=== PATIENT | female | born 1960 | race African-American/Black ===

== ENCOUNTER 2016-09-27 11:09 | Observation (INO) ==
[2016-09-27] MEDS ORDERED: methylPREDNISolone SOD SUC 125 MG/2 ML VIAL IV STA (11:48)
[2016-09-27] MEDS ORDERED: ALBUTEROL NEB SOLN 5 MG/ML 20 ML/BOTTLE CONT NEB STA (11:48)
[2016-09-27] MEDS ORDERED: methylPREDNISolone SOD SUC 125 MG/2 ML VIAL ONE (11:53)
--- NOTE | 2016-09-27 12:03 | Emergency Department Note ---
Gavino Jolley Meredith, am scribing for, and in the presence of, David Núñez MD 11: 51. Niya Jolley James D, MD, personally performed the services described in this documentation, ascribed by Barbara Mancia in my presence, and it is both accurate and complete . Arrival - Arrival Chief Complaint: Shortness of Breath Stated Complaint: breathing and flu ED Nursing Triage Note: Pt c/o SOB, wheezing, coughing, nasal congestion, ?fever , and chills. Mode of Arrival: Ambulatory Limitations: No Limitations Source: Patient, Old Records Reviewed, RN Notes Reviewed Time Seen by Provider: 09/27/16 11:45 - History of Present Illness HPI Narrative: Pt is a 56 y/o black female reporting to the ED with c/o shortness of breath, wheezing, coughing, nasal congestion, fever, and chills for the past 2 days. She states she her son was killed a few days ago and she has been very depressed. No one is with her today. Pt has a history of HTN, NIDDM, asthma, and sciatica. Onset (ago): day(s) Allergies/Adverse Reactions: Allergies Allergy/AdvReac Type Severity Reaction Status Date / Time No Known Allergies Allergy Verified 01/17/16 12:09 Home Medications: Home Medications Medication Instructions Recorded Confirmed Type Verapamil Tab [Calan Tab] 80 mg PO TID 12/02/14 09/05/16 History Metoprolol Tartrate Tab [Lopressor 50 mg PO BID #60 tablet NS 08/13/15 09/05/16 Rx Tab] metFORMIN [Glucophage] 500 mg PO BID 01/17/16 09/05/16 History Esomeprazole Magnesium [Nexium] 40 mg PO DAILY #30 capsule 09/05/16 Rx hydroCHLOROthiazide 12.5 mg PO DAILY 09/05/16 09/05/16 History [Hydrochlorothiazide] Review of System - Review of System 12 point system: reviewed and no additional remarkable complaints except as stated - Review of System Constitutional: Present: as per HPI, chills, fever Head/Ears/Nose/Throat: Present: see HPI, other (nasal congestion) Respiratory: Present: as per HPI, cough, respiratory distress (SOB), wheezing Psychiatric: Present: as per HPI, depression Medical,Surgical,& Family Hx - Medical History Cardio: History of: Hypertension Endocrine: History of: Diabetes Mellitus (NIDDM) Respiratory: History of: Asthma Musculoskeletal: History of: Musculoskeletal Problems (SCIATICA, RLE muscle spasms) - Surgical History Orthopedic Surgeries: Surgical HX of;: Orthopedic Surgery (RLE trauma) - Family History Family History: Reports;: Family Cancer, Family Diabetes, Family Hypertension - Social History Smoking Status: Never smoker Exam Physical Examination: GENERAL: This is a well-nourished, well-developed black female. Pt is tearful. VITAL SIGNS: Temperature: 96.5, Pulse: 99, Respirations: 24, Blood pressure: 139 /110, O2 Saturation: 97 HEENT: Head is normocephalic and atraumatic. Pupils are equally round and reactive to light. Extraocular movement are intact. Oropharynx is benign with moist mucous membranes. NECK: Neck is soft and supple without tenderness. There are no masses. There is no lymphadenopathy. LUNGS: Expiratory wheezes with prolongation of the expiratory phase. Chest rises symmetrically. There is no chest wall tenderness. CV: Heart is regular rate and rhythm without murmurs, rubs, or gallops. ABDOMEN: Abdomen is soft, non-tender to palpation. There are no abnormal masses palpated. There is no organomegaly. Bowel sounds are present and active. SKIN: Skin is warm and dry. No rash. EXTREMITIES: Patient has full range of motion without tenderness. There is no pedal edema. NEUROLOGIC: Awake, alert, and oriented x4. Cranial nerves II through XII are grossly intact. There are no motorsensory deficits. PSYCHIATRIC: Pt is depressed and very tearful. Vital Signs: Vital Signs Temperature 96.5 F L 09/27/16 11:13 Pulse Rate 108 H 09/27/16 13:17 Respiratory Rate 20 09/27/16 13:17 Blood Pressure 155/72 09/27/16 13:00 O2 Sat by Pulse Oximetry 100 09/27/16 13:17 Course - Reevaluation(s) Reevaluation #1: Patient continues to have expiratory wheezes. Time: 13:20 - Consultations Consultation #1: Discussed with hospitalist. Patient will be admitted to their service. Time: 13:20 Results - Labs Lab Results: I have reviewed the patients labs Labs: Influenza A: neg Influenza B: neg Disposition Clinical Impression: Acute asthma exacerbation, Grief reaction Case discussed with: patient Disposition: Still a Patient Condition: Stable Time of Disposition: 13:20
[2016-09-27] MEDS ORDERED: guaiFENesin/DM ER 600-30 MG TABLET PO PRN (13:27)
[2016-09-27] MEDS ORDERED: MORPHINE 2 MG/1 ML SYRINGE IV PRN (13:27)
[2016-09-27] MEDS ORDERED: ONDANSETRON 4 MG/2 ML VIAL IV PRN (13:27)
[2016-09-27] MEDS ORDERED: GLUCAGON 1 MG VIAL IM PRN (13:27)
[2016-09-27] MEDS ORDERED: ACETAMINOPHEN 325 MG TABLET PO PRN (13:27)
[2016-09-27] MEDS ORDERED: DOCUSATE SODIUM 100 MG CAPSULE PO PRN (13:27)
[2016-09-27] MEDS ORDERED: DEXTROSE 50% 25 GM/50 ML VIAL IV PRN (13:27)
[2016-09-27] MEDS ORDERED: ALBUTEROL/IPRATROPIUM 3 ML NEB RESP TX PRN (13:27)
--- NOTE | 2016-09-27 13:44 | XRay Report ---
XR chest 2V Date: 09/27/2016 11:48 AM History: Cough Comparison: 08/13/2015 Technique: PA and lateral chest Findings: The heart is normal in size. The lungs are clear with unremarkable mediastinum. Degenerative changes are noted. Impression: No acute cardiopulmonary pathology identified. PROCEDURE INTERPRETED AT [facility] DEPARTMENT OF RADIOLOGY Final Report Signed by: Dr. Sandra Levine
[2016-09-27 13:52] LABS: Alanine Aminotransferase 30 U/L (13-56); Albumin 3.7 G/DL (3.4-5.0); Alkaline Phosphatase 92 U/L (45-117); Aspartate Amino Transferase 22 U/L (0-37); Bilirubin,Total < 0.39 MG/DL (0.2-1.0); Blood Urea Nitrogen 10 MG/DL (7-18); Glucose 98 MG/DL (74-106); Osmolality,Calculated 281.1 MOS/KG (273-304); Potassium 4.3 MMOL/L (3.5-5.1); Sodium 142 MMOL/L (136-145)
--- NOTE | 2016-09-27 14:13 | Hospitalist History & Physical ---
Assessment and Plan - Time spent with patient Time spent with patient: Greater than 30 minutes (due to assessment, plan and documentation.) (1) Acute asthma exacerbation Status: Acute Assessment and plan: levaquin, solumedrol, duonebs, o2 Current Visit: Yes (2) Grief reaction Status: Acute Current Visit: Yes History of Present Illness Chief complaint: asthma History of present illness: Ms. Valadez is a 56 year old female who presents to the ED today with complaints of shortness of breath. She has been under tremendous stress the last week. One of her sons was murdered in [place] last Friday and she found out on Friday. She, understandably, has been very depressed. She states that about 2 days ago, she began to have increased shortness of breath and has required nebulizer treatments as needed at home. She denies a productive cough at this time. She has received an hour long nebulizer treatment in the ED and steroids and continues to wheeze. She does have a hx of HTN and DM. She will be admitted and treated with IV Levaquin, Steroids and Duonebs for asthma exacerbation. CXR at this time does not show a pneumonia. We will continue to monitor, and reassess labs and cxr in the AM. She lives at home and typically functions independently. Denies any etoh, tobacco or drug use/abuse. Further plan and addendum to follow by Dr. Andujar. Home Medications Medication Instructions Recorded Confirmed Type Verapamil Tab [Calan Tab] 80 mg PO TID 12/02/14 09/27/16 History Metoprolol Tartrate Tab [Lopressor 50 mg PO BID #60 tablet NS 08/13/15 09/27/16 Rx Tab] metFORMIN [Glucophage] 500 mg PO BID 01/17/16 09/27/16 History Esomeprazole Magnesium [Nexium] 40 mg PO DAILY #30 capsule 09/05/16 09/27/16 Rx hydroCHLOROthiazide 12.5 mg PO DAILY 09/05/16 09/27/16 History [Hydrochlorothiazide] Albuterol Inhaler [Proventil 2 puff INH Q4H PRN 09/27/16 09/27/16 History Inhaler] Allergies Allergy/AdvReac Type Severity Reaction Status Date / Time No Known Allergies Allergy Verified 01/17/16 12:09 Medical,Surgical,& Family Hx - Medical History Cardio: History of: Hypertension Endocrine: History of: Diabetes Mellitus (NIDDM) Respiratory: History of: Asthma Musculoskeletal: History of: Musculoskeletal Problems (SCIATICA, RLE muscle spasms) - Surgical History Orthopedic Surgeries: Surgical HX of;: Orthopedic Surgery (RLE trauma) - Family History Family History: Reports;: Family Cancer, Family Diabetes, Family Hypertension - Social History Smoking Status: Never smoker Frequency of Alcohol Use: None Type of Drug Use: None Marital Status: Unknown Lives With:: Alone Functional capacity: independent ambulation - Constitutional Constitutional: Absent: chills, fatigue, fever(s) - EENT Eyes: Absent: blurry vision, diplopia Ears: Absent: decreased hearing, tinnitus Nose, mouth and throat: Present: headache(s). Absent: dysphagia - Cardiovascular Cardiovascular: Present: dyspnea, dyspnea on exertion. Absent: chest pain at rest, palpitations - Respiratory Respiratory: Present: cough, dyspnea, dyspnea on exertion, wheezing. Absent: hemoptysis, change in phlegm color - Gastrointestinal Gastrointestinal: Absent: abdominal pain, melena, nausea, vomiting - Genitourinary Genitourinary: Absent: dysuria, hematuria - Musculoskeletal Musculoskeletal: Absent: arthralgias, joint swelling - Neurological Neurological: Absent: confusion, dizziness - Psychiatric Psychiatric: Present: depression. Absent: anxiety, confusion - Endocrine Endocrine: Absent: cold intolerance, heat intolerance - Hematologic/Lymphatic Hematologic/Lymphatic: Absent: easy bleeding, easy bruising Exam - Constitutional Vitals: Period Temp Pulse Resp BP Sys/Mendieta Pulse Ox Last 24 Hr 114 20-108 132-152/83-88 98-100 General appearance: normal weight, no acute distress - Head Head exam: Present: normal inspection, normocephalic - Eye Eye exam: Present: EOMI. Absent: scleral icterus Pupils: Present: GLENN, normal accommodation - ENT ENT exam: Present: normal exam, normal oropharynx - Neck Neck exam: Present: normal inspection. Absent: lymphadenopathy - Respiratory Respiratory exam: Present: accessory muscle use, prolonged expiratory phase, wheezes - Cardiovascular Cardiovascular exam: Present: regular rate and rhythm. Absent: carotid bruit - GI/Abdominal GI/Abdominal exam: Present: normal bowel sounds, soft. Absent: tenderness - Extremities Exam Extremities exam: Present: normal inspection. Absent: edema - Back Exam Back exam: Present: normal inspection. Absent: muscle spasm - Neurological Exam Neurological exam: Present: alert, oriented X3 - Psychiatric Psychiatric exam: Present: anxious, depressed - Skin Skin exam: Present: normal color, warm, dry, intact Results - Labs CBC & BMP: 09/27/16 11:55
[2016-09-27 14:41] LABS: Basophils % 0.8 % (0.0-0.8); Eosinophils # 0.5 10*3/uL (0.0-0.87); Eosinophils % 9.1 % (0.00-10.9); Hematocrit 42.7 VOL% (35.7-47.0); Hemoglobin 13.6 GM/DL (12.0-16.0); Immature Granulocytes % 0.2 %; Immature Granulocytes Absolute 0.01 #; Lymphocytes # 2.3 10*3/uL (1.4-4.0); Lymphocytes % 43.9 % (21.3-54.2); Mean Corpuscular HGB Conc 31.9 GM/DL (32-36); Mean Corpuscular Hemoglobin 31 PG (27-34); Mean Corpuscular Volume 96.2 FL (87-102); Mean Platelet Volume 11.9 FL (9.6-12.0); Monocytes # 0.3 10*3/uL (0.11-0.8); Monocytes % 5.2 % (1.7-12.7); Neutrophils # 2.1 10*3/uL (1.4-7.4); Neutrophils % 40.8 % (38.7-73.9); Platelet Count 252 T/CUMM (130-400); Red Blood Count 4.44 MC/CUMM (3.8-5.5); Red Cell Distribution Width 11.5 % (9.3-17.3); White Blood Count 5.2 T/CUMM (4-12)
[2016-09-27] MEDS ORDERED: LORazepam 2 MG/1 ML VIAL IV PRN (14:43)
[2016-09-27] MEDS ORDERED: ALBUTEROL 2.5 MG/3 ML NEB RESP TX PRN (15:04)
[2016-09-27] MEDS: LEVOFLOXACIN INJ 750 MG in PREMIX 1 EACH IV SCH (15:26)
[2016-09-27] MEDS: methylPREDNISolone SOD SUC 125 MG/2 ML VIAL IV SCH ×2 (17:09→20:35)
[2016-09-27] MEDS: VERAPAMIL 80 MG TABLET PO SCH ×2 (17:13→20:33)
[2016-09-27] MEDS: ENOXAPARIN 40 MG/0.4 ML SYRINGE SUBCUT SCH (17:13)
[2016-09-27] MEDS: INSULIN LISPRO 100 UNIT/ML SUBCUT SCH ×2 (17:25→20:35)
[2016-09-27] MEDS: metFORMIN 500 MG TABLET PO SCH (20:27)
[2016-09-27] MEDS: METOPROLOL TARTRATE 50 MG TABLET PO SCH (20:27)
[2016-09-28 05:35] LABS: Basophils % 0.1 % (0.0-0.8); Hematocrit 39.9 VOL% (35.7-47.0); Hemoglobin 12.8 GM/DL (12.0-16.0); Immature Granulocytes % 0.4 %; Immature Granulocytes Absolute 0.04 #; Lymphocytes # 1.1 10*3/uL (1.4-4.0); Lymphocytes % 10.1 % (21.3-54.2); Mean Corpuscular HGB Conc 32.1 GM/DL (32-36); Mean Corpuscular Hemoglobin 30 PG (27-34); Mean Corpuscular Volume 94.1 FL (87-102); Mean Platelet Volume 11.2 FL (9.6-12.0); Monocytes # 0.2 10*3/uL (0.11-0.8); Monocytes % 1.4 % (1.7-12.7); Neutrophils # 9.5 10*3/uL (1.4-7.4); Platelet Count 258 T/CUMM (130-400); Red Blood Count 4.24 MC/CUMM (3.8-5.5); Red Cell Distribution Width 11.8 % (9.3-17.3); White Blood Count 10.8 T/CUMM (4-12)
[2016-09-28] MEDS: methylPREDNISolone SOD SUC 125 MG/2 ML VIAL IV SCH ×3 (06:05→21:43)
[2016-09-28 06:07] LABS: Albumin 3.3 G/DL (3.4-5.0); Bilirubin,Total 0.6 MG/DL (0.2-1.0); Calcium 9.2 MG/DL (8.5-10.1); Osmolality,Calculated 282.4 MOS/KG (273-304); Potassium 4.8 MMOL/L (3.5-5.1); Total Protein 7.5 G/DL (6.4-8.3)
[2016-09-28] MEDS: INSULIN LISPRO 100 UNIT/ML SUBCUT SCH ×4 (08:48→21:43)
[2016-09-28] MEDS: metFORMIN 500 MG TABLET PO SCH ×2 (08:49→21:42)
[2016-09-28] MEDS: hydroCHLOROthiazide 12.5 MG CAPSULE PO SCH (08:49)
[2016-09-28] MEDS: PANTOPRAZOLE 40 MG TABLET PO SCH (08:49)
[2016-09-28] MEDS: ALPRAZolam 0.25 MG TABLET PO PRN ×2 (08:49→21:42)
[2016-09-28] MEDS: METOPROLOL TARTRATE 50 MG TABLET PO SCH ×2 (08:49→21:42)
[2016-09-28] MEDS: VERAPAMIL 80 MG TABLET PO SCH ×3 (08:49→21:42)
[2016-09-28] MEDS ORDERED: NON-FORMULARY MEDICATION (Esomeprazole Magnesium [Nexium] 40 MG) PO SCH (09:00)
--- NOTE | 2016-09-28 13:09 | XRay Report ---
History: Shortness of breath Date: 09/28/2016 Study: Chest x-ray PA and lateral Comparison exam: Chest x-ray 09/27/2016 The cardiomediastinal silhouette is stable. There is no pulmonary vascular engorgement. There is no pleural effusion. The lungs and pleural spaces are clear. There is [id number] thoracic spondylosis. Impression: No acute cardiopulmonary process. No adverse interval change PROCEDURE INTERPRETED AT [facility] DEPARTMENT OF RADIOLOGY Final Report Signed by: Dr. Shama De La Torre
[2016-09-28] MEDS: LEVOFLOXACIN INJ 750 MG in PREMIX 1 EACH IV SCH (14:02)
[2016-09-28] MEDS: ENOXAPARIN 40 MG/0.4 ML SYRINGE SUBCUT SCH (14:02)
[2016-09-29] MEDS: methylPREDNISolone SOD SUC 125 MG/2 ML VIAL IV SCH (06:47)
--- NOTE | 2016-09-29 07:41 | Discharge Summary ---
Hospital Course - Hospital Course Hospital Course: Ms. Valadez was hospitalized with an acute exacerbation of asthma following notification of the of her son. She was treated inhospital with Duoneb nebulizers, IV methylprednisolone, IV Levaquin, and oral alprazolam. Chest xrays demonstrated no abnormalities. She improved significantly durin her hospitalization and at the time of discharge wanted to go home. Diagnosis - Discharge Diagnosis (1) Grief reaction Status: Acute Discharge Plan - Discharge Data Disposition: Disch To Home/Self Care Condition at Discharge: Stable Discharge Diet: advance to your usual diet Activity: resume usual activities as tolerated - Discharge Medications New Albuterol/Ipratropium Neb [Duoneb] 3 ml RESP TX RT Q6H PRN #1 nebulization solution PRN Reason: Shortness Of Breath/Wheezing Continue Verapamil Tab [Calan Tab] 80 mg PO TID Metoprolol Tartrate Tab [Lopressor Tab] 50 mg PO BID #60 tablet NS metFORMIN [Glucophage] 500 mg PO BID Esomeprazole Magnesium [Nexium] 40 mg PO DAILY #30 capsule Albuterol Inhaler [Proventil Inhaler] 2 puff INH Q4H PRN PRN Reason: Shortness Of Breath/Wheezing hydroCHLOROthiazide [Hydrochlorothiazide] 12.5 mg PO DAILY - Follow Up or Referral - Forms/Instructions Exam - Constitutional Vitals: Period Temp Pulse Resp BP Sys/Mendieta Pulse Ox Last 24 Hr 96.0 F-98.1 F 60-79 16-20 117-142/65-80 98-100 General appearance: no acute distress - Head Head exam: Present: normal inspection - Neck Neck exam: Present: normal inspection - Respiratory Respiratory exam: Present: clear to auscultation bilaterally - Cardiovascular Cardiovascular exam: Present: regular rate and rhythm - GI/Abdominal GI/Abdominal exam: Present: normal bowel sounds, soft - Extremities Exam Extremities exam: Present: normal inspection - Skin Skin exam: Present: normal color Discharge Results Labs on day of discharge: Labs from last 24 hours 09/28/16 09/28/16 09/28/16 20:08 16:45 11:55 POC Glucose 150 H 156 H 153 H 09/28/16 08:00 POC Glucose 154 H - Imaging and Cardiology Procedure: Chest x-ray: report reviewed by me (normal) DS: Provider Date of admission: 09/27/16 13:27 Primary care physician: . No PCP Attending physician on admission: Ashkan Andujar Consults: 09/27/16 14:13 Consult to Pharmacy [CONS] Routine Reason for Pharmacy Consult: Adjust Meds Renal Funct 09/27/16 15:29 Consult to Pastoral Services [CONS] Routine Comment: Pastoral Screen: Request Consumer Loan Underwriter Visit Pastoral Screen Source of Request: Patient Discharging clinician: Ashkan Andujar Expected date of discharge: 09/29/16
[2016-09-29 08:16] VITALS: BP 141/69
[2016-09-29] MEDS: VERAPAMIL 80 MG TABLET PO SCH (08:45)
[2016-09-29] MEDS: metFORMIN 500 MG TABLET PO SCH (08:45)
[2016-09-29] MEDS: PANTOPRAZOLE 40 MG TABLET PO SCH (08:46)
[2016-09-29] MEDS: METOPROLOL TARTRATE 50 MG TABLET PO SCH (08:46)
[2016-09-29] MEDS: hydroCHLOROthiazide 12.5 MG CAPSULE PO SCH (08:47)
[2016-09-29] MEDS: INSULIN LISPRO 100 UNIT/ML SUBCUT SCH (08:48)
== END 2016-09-29 10:25 | disposition home or self-care (01) ==
LOC: N.ED 11:09 → N.EDINP 11:09 → N.4E 14:06